=== PATIENT | female | born 1975 | race Caucasian/White ===

== ENCOUNTER 2016-12-23 06:10 | Emergency (ER) | payer MEDICAID, BC ==
[2016-12-23] MEDS ORDERED: Ketorolac 30 MG/ML SDV IVPUSH ONE (06:25)
[2016-12-23] MEDS ORDERED: Morphine 2 MG/ML Syringe IVPUSH ONE (06:25)
[2016-12-23] MEDS ORDERED: Ondansetron 4 MG/2 ML SDV IVPUSH ONE (06:25)
--- NOTE | 2016-12-23 06:31 | EDM.PDOC ---
<Berkley Holloway - Last Filed: 12/23/16 06:54> ED HPI GENERAL MEDICAL PROBLEM - General Chief Complaint: Genitourinary Problem Stated Complaint: ?UTI or kidney infection Time Seen by Provider: 12/23/16 06:15 Source of Information: Reports: Patient History Limitations: Reports: No Limitations - History of Present Illness INITIAL COMMENTS - FREE TEXT/NARRATIVE: Pt comes in with one day old urine hesitancy, frequency, burning, and right flank pain. The pain has progressed throughout the night and is now causing nausea and vomiting. Pt denies any fever or other systemic symptoms. Pt has had a kidney infection one other time in her life and this feels the same. Onset: Sudden Onset Date: 12/22/16 Duration: Getting Worse Location: Reports: Abdomen, Back, Radiates to Quality: Reports: Burning, Sharp Severity: Severe Improves with: Reports: Movement Associated Symptoms: Reports: Diaphoresis, Nausea/Vomiting. Denies: Fever/ Chills, Malaise, Rash, Shortness of Breath, Syncope Right Flank Pain Score (Numeric/FACES): 9 - Related Data Allergies Allergy/AdvReac Type Severity Reaction Status Date / Time cefazolin [From Ancef] Allergy Anaphylactic Verified 12/23/16 06:11 Shock Penicillins Allergy Anaphylactic Verified 12/23/16 06:11 Shock Home Meds: Home Meds Albuterol [IJD: Albuterol HFA] 1 puff .XX ASDIRECTED PRN 12/23/16 [History] Levothyroxine 75 mcg PO ACBREAKFAST 12/23/16 [History] Tamsulosin HCl [Flomax] 0.4 mg PO DAILY 2 Days #2 cap.er.24h 12/23/16 [Rx] Tamsulosin HCl [Flomax] 1 tab PO DAILY 5 Days #5 cap.er.24h 12/23/16 [Rx] Past Medical History Respiratory History: Reports: Asthma Endocrine/Metabolic History: Reports: Hypothyroidism Social & Family History - Tobacco Use Smoking Status *Q: Current Every Day Smoker Years of Tobacco use: 20 Packs/Tins Daily: 0.5 ED ROS GENERAL - Review of Systems Review Of Systems: See Below Constitutional: Reports: No Symptoms HEENT: Reports: No Symptoms Respiratory: Reports: No Symptoms Cardiovascular: Reports: No Symptoms GI/Abdominal: Reports: Vomiting : Reports: Flank Pain, Frequency, Pain, Urgency, Urinary Retention Skin: Reports: No Symptoms Neurological: Reports: No Symptoms ED EXAM, GI/ABD - Physical Exam Exam: See Below Exam Limited By: No Limitations General Appearance: Alert, WD/WN, No Apparent Distress Respiratory/Chest: No Respiratory Distress, Lungs Clear, No Accessory Muscle Use Cardiovascular: Normal Peripheral Pulses GI/Abdominal Exam: Normal Bowel Sounds, Soft, Non-Tender, No Abnormal Bruit Back Exam: Normal Inspection, Full Range of Motion, CVA Tenderness (R) Extremities: Normal Inspection, Normal Range of Motion, Normal Capillary Refill Neurological: Alert, Oriented, CN II-XII Intact Psychiatric: Normal Affect, Normal Mood Skin Exam: Warm, Dry, Intact, Normal Color Course - Vital Signs Last Recorded V/S: Last Vital Signs Temp 35.2 C L 12/23/16 06:12 Pulse 74 12/23/16 06:12 Resp 18 12/23/16 06:12 BP 153/108 H 12/23/16 06:12 Pulse Ox 96 12/23/16 06:12 - Orders/Labs/Meds Orders: Active Orders 24 hr Category Date Time Status Abdomen Pelvis wo Cont [CT] Stat Exams 12/23/16 06:46 Taken CULTURE URINE [RM] Stat Lab 12/23/16 07:00 Received Labs: Laboratory Tests 12/23/16 12/23/16 12/23/16 Range/Units 06:49 06:49 07:00 WBC 9.2 (4.0-10.0) x10^3/uL RBC 4.99 (4.00-5.50) x10^6/uL Hgb 15.3 (12.0-16.0) g/dL Hct 43.5 (33.0-47.0) % MCV 87.2 (78.0-93.0) fL MCH 30.7 (26.0-32.0) pg MCHC 35.2 (32.0-36.0) g/dL RDW Coeff of Yuriy 13.0 (10.0-15.0) % Plt Count 184 (130-400) x10^3/uL Sodium 143 (136-145) mmol/L Potassium 4.0 (3.5-5.1) mmol/L Chloride 107 (98-107) mmol/L Carbon Dioxide 26 (21-32) mmol/L BUN 13 (7-18) mg/dL Creatinine 1.2 H (0.55-1.02) mg/dL Est Cr Clr Drug Dosing TNP Estimated GFR (MDRD) 50 Glucose 108 H (74-106) mg/dL Calcium 9.0 (8.5-10.1) mg/dL Urine Color Dark yellow H (YELLOW) Urine Appearance Turbid H (CLEAR) Urine pH 5.5 (5.0-8.0) Ur Specific Mcintyre >=1.030 Urine Protein 30 H (NEGATIVE) mg/dL Urine Glucose (UA) Negative (NEGATIVE) mg/dL Urine Ketones Negative (NEGATIVE) mg/dL Urine Occult Blood Moderate H (NEGATIVE) Urine Nitrite Negative (NEGATIVE) Urine Bilirubin Negative (NEGATIVE) Urine Urobilinogen 0.2 (0.2) EU/dL Ur Leukocyte Esterase Negative (NEGATIVE) Urine RBC 10-20 H (NOT SEEN) /HPF Urine WBC 0-5 (NOT SEEN) /HPF Ur Squamous Epith Cells Many H (NEGATIVE) /HPF Amorphous Sediment Few Urine Bacteria Moderate H (NEGATIVE) /HPF Granular Casts Occasional H (NEGATIVE) /HPF Urine Mucus Moderate H (NEGATIVE) /LPF Meds: Medications Discontinued Medications Generic Name Dose Route Start Last Admin Trade Name Freq PRN Reason Stop Dose Admin Ketorolac Tromethamine 30 mg 12/23/16 06:25 12/23/16 07:11 Toradol IVPUSH 12/23/16 06:26 30 mg ONETIME ONE Administration Morphine Sulfate 1 mg 12/23/16 06:25 12/23/16 07:12 Morphine IVPUSH 12/23/16 06:26 1 mg ONETIME ONE Administration Ondansetron HCl 4 mg 12/23/16 06:25 12/23/16 07:09 Zofran IVPUSH 12/23/16 06:26 4 mg ONETIME ONE Administration - Re-Assessments/Exams Free Text/Narrative Re-Assessment/Exam: 12/23/16 06:[address] [facility]. Departure - Departure Disposition: Home, Self-Care 01 Clinical Impression: Renal calculus, right Hydronephrosis Qualifiers: Hydronephrosis type: unspecified Qualified Code(s): N13.30 - Unspecified hydronephrosis - Discharge Information Prescriptions: Tamsulosin HCl [Flomax] 0.4 mg PO DAILY 2 Days #2 cap.er.24h Tamsulosin HCl [Flomax] 1 tab PO DAILY 5 Days #5 cap.er.24h Instructions: Kidney Stones Forms: ED Department Discharge Additional Instructions: 1. Stay well hydrated and rest; drink LOTS of water to keep kidneys flushed 2. May alternate Tylenol/Advil as needed 3. Use pain medication sparingly; it can make you drowsy 4. Take bladder medication (Flomax) for the full 7 days 5. Use nausea medication as needed 6. Call with any questions 7. See your Primary as symptoms <Osmani Marin - Last Filed: 12/23/16 07:46> Course - Radiology Interpretation Free Text/Narrative:: CT Abd/Pelvis: Tiny right UVJ calculus with mild hydronephrosis; Cholelithiasis See scanned report in EMR CT Results Date: 12/23/16 CT Results Time: 07:32 Departure - Departure Time of Disposition: 07:39 Condition: Good - Problem List Review Problem List Initiated/Reviewed/Updated: Yes - Assessment/Plan Plan: 1. Hydration 2. Flomax for 7 days 3. Pain medication 4. Follow up with PCP as symptoms warrant
[2016-12-23 07:27] LABS: CHLORIDE,CL 107 mmol/L (98-107); SODIUM,NA 143 mmol/L (136-145)
[2016-12-23] MEDS ORDERED: Take Home: Acetaminophen/HYDROcodone 325-5 MG, 5 Tab Pack PO ONE (07:39)
[2016-12-23] MEDS ORDERED: Take Home: Ondansetron 4 MG Tab.DIS, 2 Tab Pack PO ONE (07:44)
[2016-12-23] MEDS ORDERED: Tamsulosin 0.4 MG Cap.ER ONE (07:58)
== END 2016-12-23 08:05 | disposition home or self-care (01) ==
LOC: VM.ED 06:10
DX: N13.2 Hydronephrosis with renal and ureteral calculous obstruction (principal); E03.9 Hypothyroidism, unspecified; F17.210 Nicotine dependence, cigarettes, uncomplicated; Z88.0 Allergy status to penicillin; Z88.8 Allergy status to other drugs, medicaments and biological substances
CPT/HCPCS: 36415; 74176; 80048; 81001; 85027; 87086; 96374; 96375; 99284; A9270; J1885; J2270; J2405